=== PATIENT | male | born 1985 | race American Indian/Alaskan Native ===

== ENCOUNTER 2017-09-09 00:06 | Emergency (ER) | payer OTHER ==
[2017-09-09] MEDS ORDERED: MOTRIN PO ONE (00:59)
--- NOTE | 2017-09-09 07:55 | Emergency Department Report ---
Abscess Boil HPI - HPI Chief Complaint: Skin/Abscess/Foreign Body Stated Complaint: BOIL LEFT LEG Time Seen by Provider: 09/09/17 07:48 Duration: 1 Week Location: Lower Extremity Severity: Mild History: Yes Pain, Yes Purulent Drainage, Yes Previous History, No Fever, No Numbness, No Foreign Body, No Insect Bite HPI: 32-year-old -[place] male comes in for complaint of a boil on his left upper thigh that's been going on for a week. Patient reports that the bolus now draining. 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 He now reports that his pain is a 3 out of 10 since the boil has been draining. 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 He was recently using Hibiclens to clean the area. He denies any fever chills no nausea no vomiting. Reports is able to move his thigh. Home Medications: Previous Rx's Medication Instructions Recorded Last Taken Type Cephalexin [Keflex] 500 mg PO BID 10 Days #20 capsule 09/09/17 Unknown Rx Ibuprofen 800 mg PO Q8H PRN #30 tablet 09/09/17 Unknown Rx Allergies/Adverse Reactions: Allergies Allergy/AdvReac Type Severity Reaction Status Date / Time No Known Allergies Allergy Verified 09/09/17 07:49 ED Review of Systems ROS: Stated complaint: BOIL LEFT LEG Other details as noted in HPI Constitutional: denies: chills, fever Eyes: denies: eye pain, eye discharge, vision change ENT: denies: ear pain, throat pain Respiratory: denies: cough, shortness of breath, wheezing Cardiovascular: denies: chest pain, palpitations Endocrine: no symptoms reported Gastrointestinal: denies: abdominal pain, nausea, diarrhea Genitourinary: denies: urgency, dysuria Skin: lesions Neurological: denies: headache, weakness, paresthesias Psychiatric: denies: anxiety, depression ED Past Medical Hx - Past Medical History Previous Medical History?: No - Surgical History Additional Surgical History: Left knee surgery - Social History Smoking Status: Current Every Day Smoker Substance Use Type: None - Medications Home Medications: Home Medications Medication Instructions Recorded Confirmed Last Taken Type Cephalexin [Keflex] 500 mg PO BID 10 Days #20 capsule 09/09/17 Unknown Rx Ibuprofen 800 mg PO Q8H PRN #30 tablet 02/04/18 Unknown Rx ED Abscess Boil Physical Exam - Exam General: Vital signs noted. No distress. Alert and acting appropriately. Size: 3 cm Exam: Yes Tenderness, Yes Surrounding Cellulites/Erythema, Yes Normal Neurologic Exam, Yes Normal Circulation, No Fluctuance, No Crepitation, No Heart Murmur ED Course Vital Signs 09/09/17 00:22 Temperature 98.5 F Pulse Rate 97 H Respiratory 18 Rate Blood Pressure 133/85 O2 Sat by Pulse 98 Oximetry Critical care attestation.: If time is entered above; I have spent that time in minutes in the direct care of this critically ill patient, excluding procedure time. ED Medical Decision Making - Medical Decision Making Patient has been evaluated by this provider fast track. The full has been draining there is no need for incision and drain at this time. Patient does have surrounding cellulitis that is warm to touch. I discussed the patient I will place him on Keflex since he's been on Bactrim in the past without much success. Discussed the patient is very important for him to follow up with his primary care provider. He can take Tylenol or Motrin for the pain. Did discuss the with patient that he could use dial soap and he could mix a little bit of the Hibiclens into the soap as he washes his body since this is a history of these boils. Patient verbalized understanding. ED Disposition Clinical Impression: Cellulitis and abscess of left leg Disposition: DC-01 TO HOME OR SELFCARE Is pt being admited?: No Does the pt Need Aspirin: No Condition: Stable Instructions: Cellulitis (ED) Additional Instructions: Complete antibiotics as prescribed. Use dial soap with Hibiclens to bath with. However the abscess with gauze to prevent drainage on and here closed. Please leave it open for at least 6-8 hours. Please follow-up with the primary care provider I have listed one below. Return back to the emergency room if the cellulitis of abscess gets worse spike a fever of greater than 101.5, nausea , vomiting. Prescriptions: Cephalexin [Keflex] 500 mg PO BID 10 Days #20 capsule Ibuprofen 800 mg PO Q8H PRN #30 tablet PRN Reason: Pain Referrals: PRIMARY CAREMD [Primary Care Provider] - 3-5 Days WICHO OWUSU JR, MD [Staff Physician] - 3-5 Days Forms: Work/School Release Form(ED)
[2017-09-09 08:12] VITALS: BP 132/88
== END 2017-09-09 08:37 | disposition home or self-care (01) ==
LOC: ED 00:06
DX: L02.416 Cutaneous abscess of left lower limb (principal); F17.200 Nicotine dependence, unspecified, uncomplicated
CPT/HCPCS: 99282